=== PATIENT | female | born 1965 | race Two or more races ===

== ENCOUNTER 2020-02-02 11:48 | Emergency (ER) | payer OTHER ==
[~2020-02-02] VITALS: Ht 165.1 cm; Wt 80.4 kg
[2020-02-02 12:02] VITALS: BP 120/87
[2020-02-02] MEDS ORDERED: PROPARACAINE OPHTH 0.5%, 15ML ONE (12:11)
[2020-02-02] MEDS ORDERED: PLEASE ENTER ALLERGIES MC SCH (12:30)
[2020-02-02] MEDS ORDERED: FLUORESCEIN OPHTHALMIC 1 MG STRIP EACHEYE ONE (12:30)
[2020-02-02] MEDS ORDERED: CIPROFLOXACIN OPHTH SOLN 0.3%, 5ML LEFTEYE SCH (12:30)
[2020-02-02] MEDS ORDERED: PROPARACAINE OPHTH 0.5%, 15ML EACHEYE ONE (12:30)
--- NOTE | 2020-02-02 12:53 | NUR ---
DROPS RECEIVED FROM PHARM, SENT WITH PT TO USE UNTIL F/O WITH EYE DOC
== END 2020-02-02 13:00 | disposition home or self-care (01) ==
LOC: ED 12:38
DX: H00.15 Chalazion left lower eyelid (principal)
CPT/HCPCS: 99282